=== PATIENT | male | born 1945 | race Caucasian/White ===

== ENCOUNTER → 2016-03-11 | Day surgery (SDC) | payer MEDICARE ==
[~2016-03-11] VITALS: Ht 177.8 cm; Wt 79.0 kg
[~2016-03-11] MED LIST: ASCO500C PO; ASPI1TAB69 PO; CENTTAB PO; COQ-100C2 PO; CYCLOPENTOLATE HCL 1% OPHT SOLN 2 ML BTL ONE; FERR1TAB58 PO; FLURBIPROFEN 0.03% OPHT SOLN 2.5 ML BTL ONE; GARL1CAP PO; GLUC1CAP14 PO; L-AR500T PO; LATA0.002 EACH EYE; LIDOCAINE HCL 2% JELLY 5 ML SYRINGE ONE; LUTE20CA PO; MAGN200T PO; META48.53 PO; MIDAZOLAM HCL 2 MG/2 ML VIAL ONE; PHENYLEPHRINE HCL 10% OPTH SOLN 5 ML BTL ONE; PROBCAP11; PROPARACAINE HCL 0.5% OPHT SOLN 15 ML BTL ONE; SAW450CA2 PO; SODIUM CHLORID 0.9% 500 ML INJ 500 ML ONE; SUPETAB20 PO; TOBRAMYCIN/DEXAMETHASONE OPTH OINT 3.5 GM TUBE ONE; TROPICAMIDE 1% OPHT SOLN 15 ML BTL ONE; VITA100064 PO; [UNRECOGNIZED DRUG - OTHER] PO
[2016-03-11 07:15] VITALS: TEMP 97.9
[2016-03-11] MEDS: TOBRAMYCIN/DEXAMETHASONE OPTH OINT 3.5 GM TUBE ONE ×2 (09:02→09:18)
[2016-03-11] MEDS: LIDOCAINE HCL 1% 30 ML VIAL ONE ×2 (09:02→09:07)
[2016-03-11 09:30] VITALS: TEMP 98
[2016-03-11 09:45] VITALS: BP 111/65; PULSE 57; RESP 14; O2SAT 97
--- NOTE | 2016-03-16 23:16 | MP ---
cc: ARTUR BRIGGS M.D. [facility] #: [id number] DATE: 03/11/2016 PREOPERATIVE DIAGNOSIS: Visually significant cataract right eye. POSTOPERATIVE DIAGNOSIS: Visually significant cataract right eye. OPERATION: Phacoemulsification with posterior chamber lens implantation, right eye. SURGEON: Artur Briggs MD ANESTHESIA: Topical with MAC. COMPLICATIONS: None. PROCEDURE: After informed consent was obtained, the patient was brought into the operative suite and placed on appropriate monitors by the Anesthesia Service. The patient had been given dilating drops and topical lidocaine gel in the holding area. The patient's operative eye was then prepped and draped in the usual sterile fashion. A wire lid speculum was placed. Further 2% lidocaine was then dropped on the cornea prior to beginning the procedure. A paracentesis incision was made in the peripheral cornea with a 1 mm tan keratome. The anterior chamber was filled with viscoelastic. The anterior chamber was then entered through a stepped, clear corneal incision using a sharp 3 mm tan keratome. A circular tear capsulorrhexis was then made with a bent needle cystitome. Following hydrodissection of the lens nucleus with balance saline, phacoemulsification of the nucleus was performed using a modified chopping technique. The remaining cortex was removed with irrigation/aspiration. The prior two procedures were both performed using the handpieces of the [employer] phaco unit. The capsular bag was then filled with viscoelastic. The intraocular lens was then injected into the capsular bag and positioned. The type of intraocular lens and its power can be found elsewhere in this chart. The remaining viscoelastic was then removed from the anterior chamber with the IA handpiece. The anterior chamber was reformed with balanced saline. The wound was then closed securely with stromal hydration. It was found to be watertight to an intraocular pressure of at least 30 mmHg by palpation. A small amount of balanced salt solution was then removed through the paracentesis site and the intraocular pressure at the end of the case was approximately 20 by palpation. All drapes were then removed. TobraDex ointment was then placed in the eye, which was closed beneath a semi-pressure patch dressing. The patient tolerated this procedure well and left the operating room awake and alert. The patient is to follow-up in my office in the morning. MD MARI Alexandra/MARIANNA /10:03 AM /11:13 PM
== END | disposition home or self-care (01) ==
LOC: CSDC 06:54
PROVIDERS: ATTEND Optometrist Occupational Vision
DX: H25.11 Age-related nuclear cataract, right eye (principal)
CPT/HCPCS: 00142; 66984; J2250; J7040; V2632

== ENCOUNTER → 2016-04-22 | Day surgery (SDC) | payer MEDICARE ==
[~2016-04-22] VITALS: Ht 180.3 cm; Wt 79.5 kg
[~2016-04-22] MED LIST changes: +LIDOCAINE HCL 1% 30 ML VIAL ONE; -MIDAZOLAM HCL 2 MG/2 ML VIAL ONE
[2016-04-22 06:45] VITALS: BP 119/72; PULSE 61; RESP 16; TEMP 97.5; O2SAT 97
[2016-04-22 08:55] VITALS: TEMP 97.7
[2016-04-22 09:13] VITALS: BP 122/71; PULSE 57; RESP 14; O2SAT 100
--- NOTE | 2016-04-25 06:19 | MP ---
cc: ARTUR BRIGGS M.D. [facility] #[id number] DATE OF SURGERY: 04/22/2016 PREOPERATIVE DIAGNOSIS: Visually significant cataract, left eye. POSTOPERATIVE DIAGNOSIS: Visually significant cataract, left eye. OPERATION: Phacoemulsification with posterior chamber lens implantation, left eye. SURGEON: Artur Briggs MD ANESTHESIA: Topical with MAC. COMPLICATIONS: None. PROCEDURE: After informed consent was obtained, the patient was brought into the operative suite and placed on appropriate monitors by the Anesthesia Service. The patient had been given dilating drops and topical lidocaine gel in the holding area. The patient's operative eye was then prepped and draped in the usual sterile fashion. A wire lid speculum was placed. Further 2% lidocaine was then dropped on the cornea prior to beginning the procedure. A paracentesis incision was made in the peripheral cornea with a 1 mm tan keratome. The anterior chamber was filled with viscoelastic. The anterior chamber was then entered through a stepped, clear corneal incision using a sharp 3 mm tan keratome. A circular tear capsulorrhexis was then made with a bent needle cystitome. Following hydrodissection of the lens nucleus with balance saline, phaco-emulsification of the nucleus was performed using a modified chopping technique. The remaining cortex was removed with irrigation/aspiration. The prior two procedures were both performed using the handpieces of the [employer] phaco unit. The capsular bag was then filled with viscoelastic. The intraocular lens was then injected into the capsular bag and positioned. The type of intraocular lens and its power can be found elsewhere in this chart. The remaining viscoelastic was then removed from the anterior chamber with the IA handpiece. The anterior chamber was reformed with balanced saline. The wound was then closed securely with stromal hydration. It was found to be watertight to an intraocular pressure of at least 30 mmHg by palpation. A small amount of balanced salt solution was then removed through the paracentesis site and the intraocular pressure at the end of the case was approximately 20 by palpation. All drapes were then removed. TobraDex ointment was then placed in the eye, which was closed beneath a semi-pressure patch dressing. The patient tolerated this procedure well and left the operating room awake and alert. The patient is to follow-up in my office in the morning. MD SHANNEN Alexandra /9:52 AM /5:17 AM
== END | disposition home or self-care (01) ==
LOC: PHSDC 06:29
PROVIDERS: ATTEND Optometrist Occupational Vision
DX: H25.12 Age-related nuclear cataract, left eye (principal)
CPT/HCPCS: 00142; 66984; J7040; V2632